=== PATIENT | male | born 1990 | race Caucasian/White ===

== ENCOUNTER 2022-03-27 09:50 | Outpatient (REF) | payer MEDICAID, SELFPAY ==
--- NOTE | 2022-03-27 09:54 | EMG_ITS ---
HISTORY OF PRESENT ILLNESS: This is a 31-year-old man with right upper extremity pain and numbness. PHYSICAL EXAMINATION: His neurological examination is normal with no Tinel or Phalen sign. Muscle tone and strength are normal. No Tinel or Phalen sign. IMPRESSION: Rule out carpal tunnel syndrome. Nerve conduction EMG study: Normal electrodiagnostic study of the right upper extremity with no evidence of carpal tunnel syndrome or nerve entrapment. Normal EMG of the right C5-T1 innervated muscles. MD TRENTON Valdez/BRII / [id number]
== END 2022-03-27 09:51 | disposition home or self-care (01) ==
LOC: HO.NEURO 09:50
PROVIDERS: Visit Provider Registered Nurse Community Health
DX: R20.0 Anesthesia of skin (principal); R20.2 Paresthesia of skin
CPT/HCPCS: 95885; 95910